=== PATIENT | male | born 1980 | race Caucasian/White ===

== ENCOUNTER 2017-11-30 21:12 | Emergency (ER) | payer BC ==
[~2017-11-30] VITALS: Ht 175.3 cm; Wt 100.5 kg
[2017-11-30 21:32] VITALS: BP 149/99; PULSE 99; RESP 18; TEMP 98; O2SAT 99
--- NOTE | 2017-11-30 23:47 | PD ---
HPI Chief Complaint: Injury Time Seen by Provider: 23:46 Travel History International Travel<30 days: No Contact w/Intl Traveler<30days: No Traveled to known affect area: No History of Present Illness HPI 37-year-old male came to the emergency room with history of left sided rib pain after he lifted a heavy box at work yesterday. Patient says that when he lifted the box he felt a pop on the left rib cage to the side which was followed by pain. The pain has continued to be there. He is concerned if he has broken a rib. It hurts to move or take a deep breath. Vital signs are otherwise stable. Patient is otherwise a healthy person. No radiation of the pain. [facility] Past Medical History Narrative Medical List of his past medical, surgical, social and family history is reviewed from the nursing note Medical History: Denies Significant Hx Influenza Vaccination: No Past Surgical History Surgical History: No Previous Surgery Social History Alcohol Use: No Tobacco Use: No Substance Use: No Allergies-Medications (Allergen,Severity, Reaction): Coded Allergies: Penicillins (Verified Allergy, Unknown, 11/30/17) Comments List of his allergies reviewed from the nursing note Reported Meds & Prescriptions Reported Meds & Active Scripts Active Ibuprofen 600 Mg Tab 600 Mg PO Q6H PRN Narrative Medication Awaiting for the nurse to do the med reconciliation. Review of Systems Except as stated in HPI: all other systems reviewed are Neg Musculoskeletal: Positive: Pain Physical Exam Narrative GENERAL: Awake, alert, obese, mild distress SKIN: Focused skin assessment warm/dry. HEAD: Atraumatic. Normocephalic. EYES: Pupils equal and round. No scleral icterus. No injection or drainage. ENT: No nasal bleeding or discharge. Mucous membranes pink and moist. NECK: Trachea midline. No JVD. CARDIOVASCULAR: Regular rate and rhythm. No murmur appreciated. RESPIRATORY: No accessory muscle use. Clear to auscultation. Breath sounds equal bilaterally. GASTROINTESTINAL: Abdomen soft, non-tender, nondistended. Hepatic and splenic margins not palpable. MUSCULOSKELETAL: No obvious deformities. No clubbing. No cyanosis. No edema. Tender on the left lateral rib cage at around 9 to 10th rib NEUROLOGICAL: Awake and alert. No obvious cranial nerve deficits. Motor grossly within normal limits. Normal speech. PSYCHIATRIC: Appropriate mood and affect; insight and judgment normal. Data Data Last Documented VS Vital Signs Date Time Temp Pulse Resp B/P (MAP) Pulse Ox O2 Delivery O2 Flow Rate FiO2 11/30/17 21:32 98.0 99 18 149/99 (116) 99 Orders Orders Ribs, Uni (W/Exp Cxr-Min 3vw) (11/30/17 ) Acetamin-Hydrocod 325-5 Mg (Chama 5-325 (12/01/17 00:00) Ed Discharge Order (12/01/17 00:21) MDM Medical Decision Making Medical Screen Exam Complete: Yes Emergency Medical Condition: Yes Medical Record Reviewed: Yes Differential Diagnosis Her fracture, contusion, chest wall pain Narrative Course 12:14 AM awaiting for the x-ray to be reported. Patient has been medicated for pain. 12:35 AM x-ray is negative for rib fracture. Patient has been informed about the test result. He will be discharged home. Procedures EKG Prior to Arrival: No Diagnosis Primary Impression: Chest wall pain Referrals: Primary Care Physician Additional Instructions: Take the medication as per the prescription direction. Follow-up with primary care. Apply cold compresses alternating with warm compresses for pain relief. Med/Other Pt SpecificInfo: Prescription(s) given Scripts Ibuprofen (Ibuprofen) 600 Mg Tab 600 MG PO Q6H Y for Pain/Inflammation, #40 TAB 0 Refills Prov: Thomas Dillon MD 12/01/17 Disposition: 01 DISCHARGE HOME Condition: Stable Thomas Dillon MD Nov 30, 2017 23:47
[2017-12-01] MEDS ORDERED: ACETAMINOPHEN/HYDROcodone 325 MG/5 MG TAB PO ONE
--- NOTE | 2017-12-01 00:18 | RADRPT ---
EXAM DATE/TIME: 12/01/2017 00:05 [facility] COMPARISON: No previous studies available for comparison. INDICATIONS : Heavy lifting. Left lower rib pain. MEDICAL HISTORY : None. SURGICAL HISTORY : None. ENCOUNTER: Initial ACUITY: 2 days PAIN SCORE: 7/10 LOCATION: Left upper chest FINDINGS: Multiple views of the left ribs were performed. There is no evidence of displaced fracture. No dest ructive lesions or areas of periosteal thickening are seen. Expiratory view of the chest is negative for pneumothorax. The mediastinal structures are midline. CONCLUSION: No perceptible rib fracture or acute cardiopulmonary disease. Miller Workman MD on December 01, 2017 at 0:17 Board Certified Radiologist. This report was verified electronically.
[2017-12-01] MEDS ORDERED: IBUP-232 PO (00:22)
== END 2017-12-01 01:16 | disposition home or self-care (01) ==
LOC: NEPD 21:12
DX: R07.89 Other chest pain (principal)
CPT/HCPCS: 71101; 99283